=== PATIENT | male | born 1965 | race African-American/Black ===

== ENCOUNTER 2018-07-05 10:21 | Emergency (ER) | payer MEDICAID ==
[~2018-07-05] VITALS: Ht 182.9 cm; Wt 89.7 kg
[~2018-07-05 10:21] MED LIST: HYDR12.53 PO; RISP0.2518 PO; TRAZ150T62 PO
[2018-07-05 10:22] VITALS: BP_DIAS 111
[2018-07-05] MEDS ORDERED: LISINOPRIL 10 MG TABLET ONE (10:49)
[2018-07-05] MEDS ORDERED: LISINOPRIL 10 MG TABLET PO ONE (11:00)
[2018-07-05 11:33] VITALS: BP_SYST 157
== END 2018-07-05 11:36 | disposition home or self-care (01) ==
LOC: ED 11:25
DX: S80.01XA Contusion of right knee, initial encounter (principal); H00.024 Hordeolum internum left upper eyelid; H00.021 Hordeolum internum right upper eyelid; I10 Essential (primary) hypertension; F17.200 Nicotine dependence, unspecified, uncomplicated; X50.1XXA Overexertion from prolonged static or awkward postures, initial encounter; Y93.89 Activity, other specified; Y92.69 Other specified industrial and construction area as the place of occurrence of the external cause; Y99.0 Civilian activity done for income or pay
CPT/HCPCS: 99284

== ENCOUNTER 2018-10-13 07:14 | Emergency (ER) | payer MEDICAID ==
[~2018-10-13] VITALS: Ht 182.9 cm; Wt 85.2 kg
[2018-10-13 07:23] VITALS: BP 154/78
[2018-10-13] MEDS ORDERED: BUPR-173 PO (07:40)
[2018-10-13] MEDS ORDERED: LISI5TAB7 PO (07:40)
[2018-10-13 08:09] LABS: BASOPHILS # (AUTO) 0.03 x10^3/uL (0-0.1); BASOPHILS % (AUTO) 1 % (0-1); EOSINOPHILS # (AUTO) 0.06 x10^3/uL (0-0.4); EOSINOPHILS % (AUTO) 1 % (1-7); LYMPHOCYTES # (AUTO) 1.96 x10^3/uL (1-3.4); LYMPHOCYTES % (AUTO) 34 % (22-44); MD NO; MEAN CORPUSCULAR HEMOGLOBIN 27.5 pg (27.5-34.5); MEAN CORPUSCULAR HGB CONC 32.4 g/dL (33.2-36.2); MEAN CORPUSCULAR VOLUME 84.8 fL (81-97); MEAN PLATELET VOLUME 7.8 fL (7.4-10.4); MONOCYTES # (AUTO) 0.44 x10^3/uL (0.2-0.8); MONOCYTES % (AUTO) 8 % (2-9); NEUTROPHILS # (AUTO) 3.24 x10^3/uL (1.8-6.8); NEUTROPHILS % (AUTO) 57 % (42-75); PLATELET COUNT 245 x10^3/uL (130-400); RED BLOOD COUNT 4.35 x10^6/uL (4.38-5.82); RED CELL DISTRIBUTION WIDTH 14.5 % (9.4-14.8)
[2018-10-13 08:20] LABS: ALANINE AMINOTRANSFERASE 33 U/L (12-78); ALBUMIN 3.4 g/dL (3.4-5.0); ANION GAP 6 mmol/L (5-15); CALCIUM 8.2 mg/dL (8.5-10.1); CHLORIDE 111 mmol/L (98-107); CREATININE 1.09 mg/dL (0.7-1.3)
[2018-10-13 08:22] LABS: ALKALINE PHOSPHATASE 79 U/L (45-117); BILIRUBIN,TOTAL 0.3 mg/dL (0.2-1.0)
== END 2018-10-13 09:23 | disposition home or self-care (01) ==
LOC: ED 09:15
DX: I73.89 Other specified peripheral vascular diseases (principal); M79.672 Pain in left foot; M79.671 Pain in right foot; I10 Essential (primary) hypertension
CPT/HCPCS: 36415; 80053; 85025; 99283

== ENCOUNTER 2019-01-16 11:14 | Emergency (ER) | payer MEDICAID ==
[~2019-01-16] VITALS: Ht 182.9 cm; Wt 82.7 kg
[~2019-01-16 11:14] MED LIST changes: +BUPR-173 PO; +HYDR12.517 PO; -HYDR12.53 PO; +LISI5TAB7 PO
[2019-01-16] MEDS ORDERED: KETOROLAC 30 MG/1 ML IM ONE (11:30)
[2019-01-16] MEDS ORDERED: CYCLOBENZAPRINE 10 MG TABLET PO ONE (11:30)
[2019-01-16] MEDS ORDERED: KETOROLAC 30 MG/1 ML ONE (11:33)
[2019-01-16] MEDS ORDERED: CYCLOBENZAPRINE 10 MG TABLET ONE (11:33)
--- NOTE | 2019-01-16 11:41 | NUR ---
PT MEDICATED FOR 10/25 PAIN ORDERED
[2019-01-16 12:49] VITALS: BP 130/90
== END 2019-01-16 12:51 | disposition home or self-care (01) ==
LOC: ED 12:00
DX: S16.1XXA Strain of muscle, fascia and tendon at neck level, initial encounter (principal); I10 Essential (primary) hypertension; F17.200 Nicotine dependence, unspecified, uncomplicated; X58.XXXA Exposure to other specified factors, initial encounter; Y93.89 Activity, other specified; Y92.89 Other specified places as the place of occurrence of the external cause; Y99.8 Other external cause status
CPT/HCPCS: 96372; 99283; J1885

== ENCOUNTER 2019-01-28 | Emergency (ER) | payer MEDICAID ==
[~2019-01-28] VITALS: Ht 182.9 cm; Wt 87.0 kg
[2019-01-28 01:28] VITALS: BP 148/97
--- NOTE | 2019-01-28 01:28 | NUR ---
Patient/Caregiver given discharge instructions and they have confirmed that they understand the instructions. Patient ambulatory with steady gait.
== END 2019-01-28 01:30 | disposition home or self-care (01) ==
LOC: ED 01:15
DX: I10 Essential (primary) hypertension (principal); Z76.0 Encounter for issue of repeat prescription
CPT/HCPCS: 99283

== ENCOUNTER 2019-02-03 10:54 | Emergency (ER) | payer MEDICAID ==
[~2019-02-03] VITALS: Ht 208.3 cm; Wt 88.0 kg
--- NOTE | 2019-02-03 12:50 | NUR ---
PT JEANETTE HART WHERE HE WAS FOUND AT THE [employer] [facility] ON THE BATHROOM FLOOR. PT WITH METH PIPE NEXT TO HIM. PT STATED HE HAS BEEN DRINKING ALCOHOL ALL NIGHT. PT VERY DROWSY. PT PLACED IN ROOM AND PLACED ON BP AND CONT. PULSE OXIMETER. ASSESMENT COMPLETED. PT WITH RIGHT KNEE PAIN AND SWELLING FOR YEARS AND WITH MORE PAIN AND SWELLING AT THIS TIME. PT A&OX4.
[2019-02-03] MEDS ORDERED: HYDROcodone/APAP 5/325 TABLET PO ONE (13:30)
--- NOTE | 2019-02-03 13:39 | NUR ---
PT ASSISTED TO BR AND HAD A BM. PT CLEANED UP. PT IN BR TAKING A SHOWER IN THE SINK. PT THEN GIVEN JEANS TO GO HOME WITH.
--- NOTE | 2019-02-03 13:40 | NUR ---
PT OPENING BATHROOM DOOR TO OTHER PATIENTS ROOM WITHOUT CLOTHING ON. PT WITH GOWN ON BACKWARDS AND EXPOSING HIMSELF. PT TOLD TO GET DRESSED. PT ASKING FOR A SHOWER. I TOLD PT WE DO NOT ALLOW PT TO TAKE SHOWERS IF THEY ARE GOING HOME. PT ASKING FOR FOOD AND A NETWORK ARCHITECT MANAGER FOR HIS PHONE.
[2019-02-03] MEDS ORDERED: HYDROcodone/APAP 5/325 TABLET ONE (13:41)
--- NOTE | 2019-02-03 14:08 | NUR ---
PT GIVEN DISCHARGE INSTRUCTIONS AND FOLLOW UP INSTRUCTIONS. PT UP AMBULATORY AND STABLE ON FEET.
[2019-02-03 14:09] VITALS: BP 135/77
--- NOTE | 2019-02-03 14:30 | NUR ---
PT ESCORTED OUT WITH A WHEELCHAIR. ON THE WAY OUT PT ASKED ME " ARE YOU MEAN TO ALL AMERICANS. ?" I THEN STATED NO AND THEN LEFT PATIENT AT DISCHARGE DESK.
== END 2019-02-03 14:48 | disposition home or self-care (01) ==
LOC: ED 14:27
DX: G89.29 Other chronic pain (principal); M25.561 Pain in right knee; G89.11 Acute pain due to trauma; M79.672 Pain in left foot; I10 Essential (primary) hypertension
CPT/HCPCS: 93005; 99283

== ENCOUNTER 2019-04-01 12:15 | Inpatient (IN) | payer MEDICAID ==
[~2019-04-01] VITALS: Ht 182.9 cm; Wt 77.9 kg
[2019-04-01 13:15] LABS: MEAN CORPUSCULAR HEMOGLOBIN 28.2 pg (27.5-34.5); MEAN CORPUSCULAR HGB CONC 32.4 g/dL (33.2-36.2); MEAN CORPUSCULAR VOLUME 87.2 fL (81-97); MEAN PLATELET VOLUME 8.1 fL (7.4-10.4); PLATELET COUNT 217 x10^3/uL (130-400); RED BLOOD COUNT 4.04 x10^6/uL (4.38-5.82); RED CELL DISTRIBUTION WIDTH 15.8 % (9.4-14.8)
[2019-04-01 13:21] LABS: ALBUMIN 3.1 g/dL (3.4-5.0); ANION GAP 5 mmol/L (5-15); CALCIUM 7.8 mg/dL (8.5-10.1); CHLORIDE 115 mmol/L (98-107)
[2019-04-01 13:27] LABS: ALANINE AMINOTRANSFERASE 112 U/L (12-78); ALKALINE PHOSPHATASE 116 U/L (45-117); BILIRUBIN,TOTAL 0.6 mg/dL (0.2-1.0); CREATININE 1.55 mg/dL (0.7-1.3); TOTAL PROTEIN 5.7 g/dL (6.4-8.2); TROPONIN I 0.035 ng/mL (0.000-0.045)
[2019-04-01 13:29] LABS: BASOPHILS # (AUTO) 0.03 x10^3/uL (0-0.1); BASOPHILS % (AUTO) 1 % (0-1); EOSINOPHILS # (AUTO) 0.07 x10^3/uL (0-0.4); EOSINOPHILS % (AUTO) 1 % (1-7); LYMPHOCYTES # (AUTO) 1.63 x10^3/uL (1-3.4); LYMPHOCYTES % (AUTO) 27 % (22-44); MD SCAN; MONOCYTES # (AUTO) 0.39 x10^3/uL (0.2-0.8); MONOCYTES % (AUTO) 7 % (2-9); NEUTROPHILS # (AUTO) 3.82 x10^3/uL (1.8-6.8); NEUTROPHILS % (AUTO) 64 % (42-75)
--- NOTE | 2019-04-01 14:19 | NUR ---
IV STARTED AND URINE SENT TO THE LAB. WAITING FOR CTA OF THE CHEST. 3 P'S ADDRESSED,
[2019-04-01 14:30] LABS: MICROSCOPIC AUTO
[2019-04-01 14:31] LABS: CULTURE INDICATED? NO
[2019-04-01] MEDS ORDERED: OMNIPAQUE 350 MG/ML, 100ML BOTTLE ONE (14:33)
--- NOTE | 2019-04-01 15:01 | NUR ---
CHART UP FOR MD RECHECK. PT AWARE.
--- NOTE | 2019-04-01 16:21 | NUR ---
DR. FERNANDEZ WAS AT BEDSIDE. PT TO BE ADMITTED FOR INTERMEDIATE TROP, LEFT ARM PAIN.
[2019-04-01] MEDS ORDERED: DIVA500T2 PO (16:25)
[2019-04-01] MEDS ORDERED: TAMS-11 PO (16:25)
--- NOTE | 2019-04-01 16:50 | NUR ---
REPORT TO JANETTE MURO FOR LUNCH BREAK.
--- NOTE | 2019-04-01 17:30 | NUR ---
REPORT GIVEN BY JANETTE Layton RN.
[2019-04-01 18:45] LABS: INTERNATIONAL NORMALIZED RATIO 1.02 (0.93-1.1); PROTHROMBIN TIME 10.7 Seconds (9.6-11.5)
[2019-04-01 18:55] VITALS: BP 135/91
[2019-04-01] MEDS ORDERED: hydrALAzine 20 MG/ML, 1ML IVPush PRN (19:30)
[2019-04-01] MEDS ORDERED: LIDODERM 5% PATCH TD PRN (19:30)
[2019-04-01] MEDS ORDERED: DOCUSATE 100 MG CAPSULE PO PRN (19:30)
[2019-04-01] MEDS ORDERED: GABAPENTIN 300 MG CAPSULE PO PRN (19:30)
[2019-04-01 19:40] LABS: TROPONIN I 0.022 ng/mL (0.000-0.045)
[2019-04-01] MEDS: HEPARIN 5,000 UNITS/ML, 1ML SQ SCH (20:48)
[2019-04-01 21:03] VITALS: BP 135/91
[2019-04-02 01:01] VITALS: BP 126/86
[2019-04-02 01:32] LABS: TROPONIN I 0.033 ng/mL (0.000-0.045)
[2019-04-02] MEDS: HEPARIN 5,000 UNITS/ML, 1ML SQ SCH ×3 (05:02→20:44)
[2019-04-02 05:36] LABS: BASOPHILS # (AUTO) 0.02 x10^3/uL (0-0.1); BASOPHILS % (AUTO) 0 % (0-1); EOSINOPHILS # (AUTO) 0.13 x10^3/uL (0-0.4); EOSINOPHILS % (AUTO) 2 % (1-7); LYMPHOCYTES # (AUTO) 2.53 x10^3/uL (1-3.4); LYMPHOCYTES % (AUTO) 42 % (22-44); MD NO; MEAN CORPUSCULAR HEMOGLOBIN 28.2 pg (27.5-34.5); MEAN CORPUSCULAR HGB CONC 31.9 g/dL (33.2-36.2); MEAN CORPUSCULAR VOLUME 88.3 fL (81-97); MEAN PLATELET VOLUME 8.2 fL (7.4-10.4); MONOCYTES # (AUTO) 0.39 x10^3/uL (0.2-0.8); MONOCYTES % (AUTO) 7 % (2-9); NEUTROPHILS # (AUTO) 2.92 x10^3/uL (1.8-6.8); NEUTROPHILS % (AUTO) 49 % (42-75); PLATELET COUNT 214 x10^3/uL (130-400); RED BLOOD COUNT 4.15 x10^6/uL (4.38-5.82); RED CELL DISTRIBUTION WIDTH 16.7 % (9.4-14.8)
[2019-04-02 05:38] LABS: ALANINE AMINOTRANSFERASE 95 U/L (12-78); ALBUMIN 2.9 g/dL (3.4-5.0); ANION GAP 6 mmol/L (5-15); CHLORIDE 112 mmol/L (98-107); CREATININE 0.95 mg/dL (0.7-1.3)
[2019-04-02 05:40] LABS: ALKALINE PHOSPHATASE 109 U/L (45-117); BILIRUBIN,TOTAL 0.6 mg/dL (0.2-1.0); TOTAL PROTEIN 5.7 g/dL (6.4-8.2)
[2019-04-02 07:09] VITALS: BP 126/86
[2019-04-02] MEDS: TAMSULOSIN 0.4 MG CAP.ER.24H PO SCH (08:08)
[2019-04-02] MEDS: DIVALPROEX 500 MG TABLET.DR PO SCH (08:08)
[2019-04-02] MEDS: ACETAMINOPHEN 325 MG TABLET PO PRN ×2 (08:27→13:43)
[2019-04-02] MEDS ORDERED: TRAZODONE 150MG TABLET PO SCH (09:00)
[2019-04-02] MEDS ORDERED: REGADENOSON 0.4 MG/5 ML SYRINGE ONE (09:17)
[2019-04-02 09:43] LABS: LDL/HDL RATIO 1.7 (0.5-3.0)
[2019-04-02 10:16] LABS: HCT (SEDRATE) 36.7 % (39.2-51.8)
[2019-04-02] MEDS ORDERED: GUAIFENESIN 200 MG TABLET PO SCH (12:00)
[2019-04-02] MEDS ORDERED: GUAIFENESIN 200 MG TABLET ONE (12:03)
[2019-04-02 13:10] VITALS: BP 136/92
[2019-04-02 14:32] VITALS: BP_SYST 133; BP_SYST 145; BP_DIAS 107; BP_DIAS 87
[2019-04-02 14:33] VITALS: BP 143/114
[2019-04-02 15:54] LABS: AMPHETAMINE SCREEN, URINE Positive (Negative); BARBITURATE SCREEN, URINE Negative (Negative); BENZODIAZEPINE SCREEN, URINE Negative (Negative); CANNABINOID SCREEN, URINE Negative (Negative); COCAINE SCREEN, URINE Negative (Negative); METHADONE SCREEN, URINE Negative (Negative); OPIATE SCREEN, URINE Negative (Negative)
[2019-04-02 20:07] VITALS: BP 129/87
[2019-04-02] MEDS: GUAIFENESIN ER 600 MG TABLET PO SCH (20:43)
[2019-04-02] MEDS: LISINOPRIL 10 MG TABLET PO SCH (20:44)
[2019-04-02] MEDS: TRAZODONE 150MG TABLET PO SCH (20:44)
[2019-04-03 01:16] VITALS: BP 122/81
[2019-04-03] MEDS: HEPARIN 5,000 UNITS/ML, 1ML SQ SCH ×3 (05:29→20:49)
[2019-04-03] MEDS: DIVALPROEX 500 MG TABLET.DR PO SCH (08:08)
[2019-04-03] MEDS: CARVEDILOL 3.125 MG TABLET PO SCH ×2 (08:08→17:47)
[2019-04-03] MEDS: GUAIFENESIN ER 600 MG TABLET PO SCH ×2 (08:08→20:49)
[2019-04-03] MEDS: TAMSULOSIN 0.4 MG CAP.ER.24H PO SCH (08:08)
[2019-04-03] MEDS: LISINOPRIL 10 MG TABLET PO SCH (08:10)
[2019-04-03 08:16] VITALS: BP 128/91
[2019-04-03 14:25] VITALS: BP 135/92
[2019-04-03 17:45] VITALS: BP 136/94
[2019-04-03 19:34] VITALS: BP 122/80
[2019-04-03] MEDS: TRAZODONE 150MG TABLET PO SCH (20:49)
[2019-04-04 03:20] VITALS: BP 138/99
[2019-04-04] MEDS: CARVEDILOL 3.125 MG TABLET PO SCH (05:06)
[2019-04-04] MEDS: HEPARIN 5,000 UNITS/ML, 1ML SQ SCH ×3 (05:06→21:43)
[2019-04-04 07:20] VITALS: BP 122/85
[2019-04-04] MEDS: GUAIFENESIN ER 600 MG TABLET PO SCH ×2 (08:10→21:43)
[2019-04-04] MEDS: TAMSULOSIN 0.4 MG CAP.ER.24H PO SCH (08:11)
[2019-04-04] MEDS: LISINOPRIL 10 MG TABLET PO SCH (08:11)
[2019-04-04] MEDS: DIVALPROEX 500 MG TABLET.DR PO SCH (08:11)
[2019-04-04 10:23] VITALS: BP 133/92
[2019-04-04] MEDS: SPIRONOLACTONE 25 MG TABLET PO SCH (10:25)
[2019-04-04] MEDS ORDERED: CARVEDILOL 3.125 MG TABLET PO ONE (10:30)
[2019-04-04 10:57] LABS: ANION GAP 9 mmol/L (5-15); CALCIUM 8.3 mg/dL (8.5-10.1); CHLORIDE 112 mmol/L (98-107); CREATININE 1.16 mg/dL (0.7-1.3)
[2019-04-04 12:59] VITALS: BP 131/91
[2019-04-04 17:49] VITALS: BP 123/89
[2019-04-04] MEDS: CARVEDILOL 6.25 MG TABLET PO SCH (17:50)
[2019-04-04 19:20] VITALS: BP 129/79
[2019-04-04] MEDS: TRAZODONE 150MG TABLET PO SCH (21:43)
[2019-04-05 02:06] VITALS: BP 116/82
[2019-04-05] MEDS: HEPARIN 5,000 UNITS/ML, 1ML SQ SCH ×2 (05:50→13:00)
[2019-04-05] MEDS: CARVEDILOL 6.25 MG TABLET PO SCH (05:50)
[2019-04-05 05:52] VITALS: BP 126/89
[2019-04-05 07:47] VITALS: BP 127/80
[2019-04-05] MEDS ORDERED: CARV6.2512 PO (08:12)
[2019-04-05] MEDS ORDERED: LISI5TAB7 PO ×2 (08:12)
[2019-04-05] MEDS ORDERED: GUAI600T31 PO (08:12)
[2019-04-05] MEDS ORDERED: SPIR25TA PO (08:12)
[2019-04-05] MEDS: DIVALPROEX 500 MG TABLET.DR PO SCH (09:07)
[2019-04-05] MEDS: SPIRONOLACTONE 25 MG TABLET PO SCH (09:08)
[2019-04-05] MEDS: GUAIFENESIN ER 600 MG TABLET PO SCH (09:08)
[2019-04-05] MEDS: LISINOPRIL 10 MG TABLET PO SCH (09:09)
[2019-04-05] MEDS: TAMSULOSIN 0.4 MG CAP.ER.24H PO SCH (09:10)
[2019-04-05] MEDS ORDERED: LOSA25TA12 PO (13:05)
[2019-04-05 16:42] LABS: ANA SCREEN NEGATIVE (Negative)
== END 2019-04-05 14:15 | disposition home or self-care (01) | DRG 917 ==
LOC: ED 13:20 → EDIP 16:35 → 5SO 18:49
PROVIDERS: ADMIT Internal Medicine; ATTEND Internal Medicine
DX: T43.621A Poisoning by amphetamines, accidental (unintentional), initial encounter (principal); N17.0 Acute kidney failure with tubular necrosis; I42.7 Cardiomyopathy due to drug and external agent; I50.22 Chronic systolic (congestive) heart failure; Y92.89 Other specified places as the place of occurrence of the external cause; I08.1 Rheumatic disorders of both mitral and tricuspid valves; F15.10 Other stimulant abuse, uncomplicated; I11.0 Hypertensive heart disease with heart failure; R74.0 Nonspecific elevation of levels of transaminase and lactic acid dehydrogenase [LDH]; F12.90 Cannabis use, unspecified, uncomplicated; I45.81 Long QT syndrome; N40.0 Benign prostatic hyperplasia without lower urinary tract symptoms; F17.210 Nicotine dependence, cigarettes, uncomplicated; F31.9 Bipolar disorder, unspecified; G89.29 Other chronic pain; M54.9 Dorsalgia, unspecified; D64.9 Anemia, unspecified; Z79.899 Other long term (current) drug therapy; Z82.49 Family history of ischemic heart disease and other diseases of the circulatory system; Z83.3 Family history of diabetes mellitus
CPT/HCPCS: 36415; 71046; 71275; 76700; 78452; 80048; 80053; 80061; 80074; 80307; 81001; 82570; 83605; 83615; 83735; 83880; 84145; 84300; 84484; 85025; 85379; 85610; 85651; 85730; 86038; 86140; 86480; 86592; 87806; 93005; 93017; 93306; 96372; 99285; G0378; J1644; J2785; Q9967; A9502; C9898; G0475

== ENCOUNTER 2019-05-14 10:24 | Emergency (ER) | payer MEDICAID ==
[~2019-05-14] VITALS: Ht 180.3 cm; Wt 77.0 kg
[~2019-05-14 10:24] MED LIST changes: +CARV6.2512 PO; +DIVA500T2 PO; +GUAI600T31 PO; +LOSA25TA12 PO; +SPIR25TA PO; +TAMS-11 PO
--- NOTE | 2019-05-14 11:11 | NUR ---
DR. MARTINEZ AT [facility]. PT C/O CP FOR 2 DAYS WITH RECENT ADMIT FOR COUGH AND SOB. DURING THAT VISIT HE HAD PLEURAL EFFUSIONS AND MEDISTINAL MASS WAS FOUND THAT SHOULD HAVE FLOOW-UP CT. PT REPORTS SOB ON EXERTION, NIGHT SWEATS THAT HAS CONTINUED SINCE LAST ADMISSION. PT STILL SMIKES BUT IS CUTTING BACK. PT ON MONITOR.
[2019-05-14 11:13] LABS: BASOPHILS # (AUTO) 0.02 x10^3/uL (0-0.1); BASOPHILS % (AUTO) 0 % (0-1); EOSINOPHILS # (AUTO) 0.12 x10^3/uL (0-0.4); EOSINOPHILS % (AUTO) 2 % (1-7); LYMPHOCYTES # (AUTO) 2.12 x10^3/uL (1-3.4); LYMPHOCYTES % (AUTO) 38 % (22-44); MD NO; MEAN CORPUSCULAR HEMOGLOBIN 28.1 pg (27.5-34.5); MEAN CORPUSCULAR HGB CONC 32.1 g/dL (33.2-36.2); MEAN CORPUSCULAR VOLUME 87.5 fL (81-97); MEAN PLATELET VOLUME 7.8 fL (7.4-10.4); MONOCYTES # (AUTO) 0.37 x10^3/uL (0.2-0.8); MONOCYTES % (AUTO) 7 % (2-9); NEUTROPHILS # (AUTO) 2.91 x10^3/uL (1.8-6.8); NEUTROPHILS % (AUTO) 53 % (42-75); PLATELET COUNT 263 x10^3/uL (130-400); RED BLOOD COUNT 4.62 x10^6/uL (4.38-5.82); RED CELL DISTRIBUTION WIDTH 14.4 % (9.4-14.8)
[2019-05-14 11:20] LABS: INTERNATIONAL NORMALIZED RATIO 1.01 (0.93-1.1); PROTHROMBIN TIME 10.6 Seconds (9.6-11.5)
[2019-05-14 11:24] LABS: ALBUMIN 3.6 g/dL (3.4-5.0); CALCIUM 8.7 mg/dL (8.5-10.1)
[2019-05-14 11:29] LABS: ALANINE AMINOTRANSFERASE 29 U/L (12-78); ALKALINE PHOSPHATASE 99 U/L (45-117); BILIRUBIN,TOTAL 0.3 mg/dL (0.2-1.0); CREATININE 1.05 mg/dL (0.7-1.3); TOTAL PROTEIN 7.1 g/dL (6.4-8.2); TROPONIN I < 0.015 ng/mL (0.000-0.045)
[2019-05-14 11:45] LABS: ANION GAP 3 mmol/L (5-15); CHLORIDE 111 mmol/L (98-107)
[2019-05-14 11:54] LABS: AMPHETAMINE SCREEN, URINE Negative (Negative); BARBITURATE SCREEN, URINE Negative (Negative); BENZODIAZEPINE SCREEN, URINE Negative (Negative); CANNABINOID SCREEN, URINE Negative (Negative); COCAINE SCREEN, URINE Negative (Negative); METHADONE SCREEN, URINE Negative (Negative); OPIATE SCREEN, URINE Negative (Negative)
--- NOTE | 2019-05-14 12:14 | NUR ---
CHART UP FOR MD RECHECK. PT AWARE.
[2019-05-14 12:30] VITALS: BP 127/82
== END 2019-05-14 12:32 | disposition home or self-care (01) ==
LOC: ED 12:10
DX: R07.2 Precordial pain (principal); I11.0 Hypertensive heart disease with heart failure; I50.9 Heart failure, unspecified; F17.200 Nicotine dependence, unspecified, uncomplicated
CPT/HCPCS: 36415; 71045; 80053; 80307; 83735; 83880; 84443; 84484; 85025; 85610; 93005; 99284

== ENCOUNTER 2020-05-11 12:42 | Emergency (ER) | payer MEDICAID ==
[~2020-05-11] VITALS: Ht 175.3 cm; Wt 73.0 kg
[2020-05-11 12:46] VITALS: BP 121/85
[2020-05-11 14:08] LABS: ANION GAP 6 mmol/L (5-15); CALCIUM 8.9 mg/dL (8.5-10.1); CHLORIDE 109 mmol/L (98-107); CREATININE 1.13 mg/dL (0.7-1.3)
--- NOTE | 2020-05-11 14:25 | NUR ---
ALL RESULTS ARE BACK AT THIS TIME. CHART UP FOR RECHECK.
== END 2020-05-11 15:00 | disposition home or self-care (01) ==
LOC: ED 14:55
DX: M25.561 Pain in right knee (principal); I11.0 Hypertensive heart disease with heart failure; I50.9 Heart failure, unspecified; F17.200 Nicotine dependence, unspecified, uncomplicated
CPT/HCPCS: 36415; 80048; 99284

== ENCOUNTER 2020-05-30 01:32 | Emergency (ER) | payer MEDICAID ==
[~2020-05-30] VITALS: Ht 172.7 cm; Wt 76.1 kg
[2020-05-30 01:37] VITALS: BP 151/96
--- NOTE | 2020-05-30 01:54 | NUR ---
Pt states out of flomax and "its been hard to pee since". States able to urinate but "it just spits out." Denies pain upon urination or blood in urine. -flank pain.
[2020-05-30] MEDS ORDERED: TAMSULOSIN 0.4 MG CAP.ER.24H ONE (01:56)
[2020-05-30] MEDS ORDERED: IBUPROFEN 600 MG TABLET ONE (01:57)
[2020-05-30] MEDS ORDERED: IBUPROFEN 600 MG TABLET PO ONE (02:00)
[2020-05-30] MEDS ORDERED: TAMSULOSIN 0.4 MG CAP.ER.24H PO ONE (02:00)
== END 2020-05-30 02:08 | disposition home or self-care (01) ==
LOC: ED 02:00
DX: N40.1 Benign prostatic hyperplasia with lower urinary tract symptoms (principal); R33.8 Other retention of urine; G89.29 Other chronic pain; M25.561 Pain in right knee; F17.200 Nicotine dependence, unspecified, uncomplicated; I11.0 Hypertensive heart disease with heart failure; I50.9 Heart failure, unspecified
CPT/HCPCS: 99283

== ENCOUNTER 2020-06-01 06:16 | Emergency (ER) | payer MEDICAID ==
[~2020-06-01] VITALS: Ht 172.7 cm; Wt 82.0 kg
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
--- NOTE | 2020-06-01 06:23 | NUR ---
PA AT BEDSIDE FOR ASSESSMENT
--- NOTE | 2020-06-01 06:55 | NUR ---
REPORT FROM TEJAS MURO
[2020-06-01] MEDS ORDERED: DEXAMETHASONE 4 MG/ML, 1ML ONE (06:58)
[2020-06-01] MEDS ORDERED: DEXAMETHASONE 4 MG/ML, 1ML IM ONE (07:00)
[2020-06-01] MEDS ORDERED: BICILLIN-LA 1,200,000 UNITS/2 ML IM ONE (07:00)
[2020-06-01 07:33] LABS: BASOPHILS # (AUTO) 0.04 x10^3/uL (0-0.1); BASOPHILS % (AUTO) 0 % (0-1); EOSINOPHILS # (AUTO) 0.05 x10^3/uL (0-0.4); EOSINOPHILS % (AUTO) 1 % (1-7); LYMPHOCYTES # (AUTO) 1.69 x10^3/uL (1-3.4); LYMPHOCYTES % (AUTO) 19 % (22-44); MD NO; MEAN CORPUSCULAR HGB CONC 32.2 g/dL (33.2-36.2); MEAN CORPUSCULAR VOLUME 87.1 fL (81-97); MEAN PLATELET VOLUME 7.8 fL (7.4-10.4); MONOCYTES # (AUTO) 0.85 x10^3/uL (0.2-0.8); MONOCYTES % (AUTO) 9 % (2-9); NEUTROPHILS # (AUTO) 6.38 x10^3/uL (1.8-6.8); NEUTROPHILS % (AUTO) 71 % (42-75); PLATELET COUNT 243 x10^3/uL (130-400); RED BLOOD COUNT 4.43 x10^6/uL (4.38-5.82); RED CELL DISTRIBUTION WIDTH 14.3 % (9.4-14.8)
[2020-06-01 08:04] LABS: ALBUMIN 3.4 g/dL (3.4-5.0); CHLORIDE 111 mmol/L (98-107)
--- NOTE | 2020-06-01 08:10 | NUR ---
PIV placed, waiting for imaging. Call light in reack.
[2020-06-01 08:11] LABS: ALANINE AMINOTRANSFERASE 16 U/L (12-78); ALKALINE PHOSPHATASE 108 U/L (45-117); ANION GAP 6 mmol/L (5-15); BILIRUBIN,TOTAL 0.4 mg/dL (0.2-1.0); CALCIUM 8.3 mg/dL (8.5-10.1); CREATININE 1.17 mg/dL (0.7-1.3); TOTAL PROTEIN 7.5 g/dL (6.4-8.2)
--- NOTE | 2020-06-01 08:32 | NUR ---
pt to imaging
[2020-06-01] MEDS ORDERED: OMNIPAQUE 350 MG/ML, 100ML BOTTLE ONE (08:47)
[2020-06-01] MEDS ORDERED: BENZOCAINE 20% SPRAY 0.5ML TP ONE (09:30)
[2020-06-01] MEDS ORDERED: LIDOCAINE 1%-EPI 1:100K, 20ML SQ ONE (09:30)
--- NOTE | 2020-06-01 09:48 | NUR ---
pt resting in bed, call light in reach.
[2020-06-01] MEDS ORDERED: BENZOCAINE AEROSOL SPRAY 20%, 60ML ONE (10:10)
[2020-06-01] MEDS ORDERED: LIDOCAINE 1%-EPI 1:100K, 20ML ONE (10:10)
--- NOTE | 2020-06-01 10:16 | NUR ---
HEDY VALLE & HEDY ROBERTSON AT BEDSIDE FOR PROCEDURE.
--- NOTE | 2020-06-01 10:42 | NUR ---
Discharge instructions reviewed
[2020-06-01 10:50] VITALS: BP 150/83
== END 2020-06-01 10:52 | disposition home or self-care (01) ==
LOC: ED 07:43
DX: J36 Peritonsillar abscess (principal); R13.10 Dysphagia, unspecified; R42 Dizziness and giddiness; I11.0 Hypertensive heart disease with heart failure; I50.9 Heart failure, unspecified
CPT/HCPCS: 36415; 42700; 70491; 80053; 85025; 96372; 99285; J0561; J1100; J3490; Q9967

== ENCOUNTER 2020-10-05 20:52 | Emergency (ER) | payer MEDICAID ==
[~2020-10-05] VITALS: Ht 175.3 cm; Wt 88.0 kg
[2020-10-05 21:08] VITALS: BP 161/74
[2020-10-05 22:01] LABS: BASOPHILS % (AUTO) 1 % (0-1); EOSINOPHILS % (AUTO) 1 % (1-7); LYMPHOCYTES % (AUTO) 40 % (22-44); MEAN CORPUSCULAR HEMOGLOBIN 28.4 pg (27.5-34.5); MEAN CORPUSCULAR HGB CONC 32.7 g/dL (33.2-36.2); MEAN PLATELET VOLUME 7.6 fL (7.4-10.4); MONOCYTES % (AUTO) 12 % (2-9); NEUTROPHILS % (AUTO) 47 % (42-75); PLATELET COUNT 232 x10^3/uL (130-400); RED BLOOD COUNT 4.61 x10^6/uL (4.38-5.82); RED CELL DISTRIBUTION WIDTH 14.2 % (9.4-14.8)
[2020-10-05 22:10] LABS: MD NO
[2020-10-05 22:11] LABS: ALANINE AMINOTRANSFERASE 16 U/L (12-78); ALBUMIN 3.8 g/dL (3.4-5.0); ANION GAP 6 mmol/L (5-15); CALCIUM 8.5 mg/dL (8.5-10.1); CHLORIDE 110 mmol/L (98-107); CREATININE 1.19 mg/dL (0.7-1.3)
[2020-10-05 22:13] LABS: ALKALINE PHOSPHATASE 100 U/L (45-117); BILIRUBIN,TOTAL 0.2 mg/dL (0.2-1.0); TOTAL PROTEIN 7.8 g/dL (6.4-8.2)
[2020-10-05] MEDS ORDERED: ACETAMINOPHEN 500 MG TABLET PO ONE (23:00)
[2020-10-05] MEDS ORDERED: DOXYCYCLINE 100MG TABLET PO ONE (23:00)
[2020-10-05] MEDS ORDERED: ACETAMINOPHEN 500 MG TABLET ONE (23:08)
[2020-10-05] MEDS ORDERED: DOXYCYCLINE 100MG TABLET ONE (23:08)
--- NOTE | 2020-10-05 23:12 | NUR ---
PT MEDICATED PER MAR Patient/Caregiver given discharge instructions and they have confirmed that they understand the instructions. Patient ambulatory with steady gait.
== END 2020-10-05 23:46 | disposition home or self-care (01) ==
LOC: ED 23:40
DX: L03.312 Cellulitis of back [any part except buttock and flank] (principal); Z20.828 Contact with and (suspected) exposure to other viral communicable diseases; R11.2 Nausea with vomiting, unspecified; M79.10 Myalgia, unspecified site; R51.9 Headache, unspecified; R19.7 Diarrhea, unspecified; M54.6 Pain in thoracic spine; I11.0 Hypertensive heart disease with heart failure; I50.9 Heart failure, unspecified
CPT/HCPCS: 71045; 80053; 85025; 87635; 99284

== ENCOUNTER 2021-01-13 19:19 | Emergency (ER) | payer MEDICAID ==
[~2021-01-13] VITALS: Ht 175.3 cm; Wt 84.4 kg
[2021-01-13 20:34] VITALS: BP 176/114
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
--- NOTE | 2021-01-13 20:48 | NUR ---
discharge instructions reviewed with patient. no further questions at this time. prescription handed directly to patient. behavioral facilities/counsiling resources in community handed directly to patient and reviewed if any worsening of depression/sadness, SI thoughts worsen and become intentional. patient verbalized acknowledgment of this. steady gait in room. all personal belongings with patient on dc. no IV placed during this ER visit.
== END 2021-01-13 21:16 | disposition home or self-care (01) ==
LOC: ED 20:52
DX: G62.9 Polyneuropathy, unspecified (principal); I11.0 Hypertensive heart disease with heart failure; I50.9 Heart failure, unspecified; E11.9 Type 2 diabetes mellitus without complications
CPT/HCPCS: 99283

== ENCOUNTER 2021-05-22 19:44 | Emergency (ER) | payer MEDICAID ==
[~2021-05-22] VITALS: Ht 175.3 cm; Wt 84.0 kg
[2021-05-22 19:49] VITALS: BP 146/106
--- NOTE | 2021-05-22 21:20 | NUR ---
PT AMBULATES FROM LOBBY TO ROOM WITH STEADY GAIT.
--- NOTE | 2021-05-22 21:41 | NUR ---
PT D/C WITH D/C SUMMARY AND SCRIPTS. ALL QUESTIONS ANSWERED. PT AMBULATES TO REGISTRATION DESK WITH STEADY GAIT WITH USE OF CANE FOR D/C HOME. PT DENIES ANY OTHER NEEDS PERTAINING TO THIS VISIT.
== END 2021-05-22 21:43 ==
LOC: ED 21:41
DX: M54.6 Pain in thoracic spine (principal); I11.0 Hypertensive heart disease with heart failure; I50.9 Heart failure, unspecified; E11.9 Type 2 diabetes mellitus without complications; F17.200 Nicotine dependence, unspecified, uncomplicated; Z96.651 Presence of right artificial knee joint
CPT/HCPCS: 99283

== ENCOUNTER 2021-06-27 15:03 | Emergency (ER) | payer MEDICAID ==
[~2021-06-27] VITALS: Ht 182.9 cm; Wt 80.0 kg
[2021-06-27 15:40] VITALS: BP 160/100
--- NOTE | 2021-06-27 15:42 | NUR ---
PT LEFT WITHOUT BEING SEEN BY
== END 2021-06-27 15:44 | disposition left against medical advice (07) ==
LOC: ED 15:30
DX: R51.9 Headache, unspecified (principal); M25.529 Pain in unspecified elbow; Z53.21 Procedure and treatment not carried out due to patient leaving prior to being seen by health care provider

== ENCOUNTER 2021-07-19 05:46 | Emergency (ER) | payer MEDICAID ==
[~2021-07-19] VITALS: Ht 175.3 cm; Wt 86.6 kg
[2021-07-19] MEDS ORDERED: HYDROcodone/APAP 5/325 TABLET PO PRN (06:00)
[2021-07-19] MEDS ORDERED: KETOROLAC 30 MG/1 ML IM ONE (06:00)
[2021-07-19] MEDS ORDERED: KETOROLAC 30 MG/1 ML ONE (06:04)
[2021-07-19] MEDS ORDERED: HYDROcodone/APAP 5/325 TABLET ONE (06:04)
--- NOTE | 2021-07-19 07:12 | NUR ---
PATIENT IS LAYING IN GURNEY WATCHING TV, NADN, CONNECTED TO MONITOR, VSS, CALL LIGHT WITHIN REACH.
--- NOTE | 2021-07-19 07:16 | NUR ---
PATIENT TO IMAGING.
--- NOTE | 2021-07-19 08:03 | NUR ---
ALL RESULTS BACK, PT FOR RECHECK.
--- NOTE | 2021-07-19 08:53 | NUR ---
PATIENT TO MRI.
[2021-07-19] MEDS ORDERED: GADOTERATE 10 MMOL/20ML SYR ONE (09:10)
--- NOTE | 2021-07-19 09:10 | NUR ---
PATIENT STILL IN MRI.
--- NOTE | 2021-07-19 09:38 | NUR ---
PATIENT BACK IN ROOM, NADN, CONNECTED TO MONITOR, VSS, CALL LIGHT WITHIN REACH. WAITING FOR MRI RESULTS.
--- NOTE | 2021-07-19 10:15 | NUR ---
HVAC TECHNICIAN RESIDENTIAL AT BEDSIDE.
[2021-07-19 10:41] LABS: BASOPHILS % (AUTO) 0 % (0-1); EOSINOPHILS % (AUTO) 2 % (1-7); LYMPHOCYTES % (AUTO) 46 % (22-44); MEAN CORPUSCULAR HEMOGLOBIN 27.6 pg (27.5-34.5); MEAN CORPUSCULAR HGB CONC 32.5 g/dL (33.2-36.2); MEAN PLATELET VOLUME 7.6 fL (7.4-10.4); MONOCYTES % (AUTO) 7 % (2-9); NEUTROPHILS % (AUTO) 45 % (42-75); PLATELET COUNT 263 x10^3/uL (130-400); RED BLOOD COUNT 5.02 x10^6/uL (4.38-5.82); RED CELL DISTRIBUTION WIDTH 14.6 % (9.4-14.8)
[2021-07-19 10:46] LABS: ANION GAP 6 mmol/L (5-15); C-REACTIVE PROTEIN, QUANT 0.66 mg/dL (0.02-0.49); CALCIUM 8.9 mg/dL (8.5-10.1); CHLORIDE 107 mmol/L (98-107); CREATININE 0.94 mg/dL (0.7-1.3)
[2021-07-19 10:53] LABS: HCT (SEDRATE) 42.7 % (39.2-51.8)
--- NOTE | 2021-07-19 11:08 | NUR ---
PATIENT PACING BACK AND FORTH IN ROOM, TOOK GOWN AND ALL MONITORING EQUIPMENT OFF AND GOT DRESSED. LABS RESULTED, PATIENT UP FOR RECHECK.
[2021-07-19 11:48] VITALS: BP 131/98
--- NOTE | 2021-07-19 12:14 | NUR ---
PATIENT FOUND WALKING IN AMBULANCE BAY, WALKED BACK TO ROOM, ERMD NOTIFIED AND DISCUSSED DISCHARGE DISPO WITH PATIENT. IV REMOVED WITH TIP INTACT. Patient given discharge instructions and prescription given and they have confirmed that they understand the instructions. Patient ambulatory with steady gait. NAD, all questions answered appropriately, denies additional needs at this time. No personal belongings left in room after discharge.
== END 2021-07-19 11:49 | disposition home or self-care (01) ==
LOC: ED 06:00
DX: M47.816 Spondylosis without myelopathy or radiculopathy, lumbar region (principal); G62.9 Polyneuropathy, unspecified; I11.0 Hypertensive heart disease with heart failure; I50.9 Heart failure, unspecified; G89.29 Other chronic pain; E11.9 Type 2 diabetes mellitus without complications
CPT/HCPCS: 36415; 72110; 72158; 73564; 80048; 83605; 84145; 85025; 85651; 86140; 87040; 96372; 99285; A9575; J1885

== ENCOUNTER 2021-07-25 10:55 | Emergency (ER) | payer MEDICAID ==
[~2021-07-25] VITALS: Ht 175.3 cm; Wt 82.5 kg
--- NOTE | 2021-07-25 16:17 | NUR ---
COMMERCIAL TIRE SERVICE TECHNICIAN: CALLED FOR ROOM, NO ANSWER
--- NOTE | 2021-07-25 16:39 | NUR ---
Viktor solis in [facility] - 07/25/21 at 1640 by JENIFER SALES ADVISORY MANAGER: CALLED FOR ROOM, NO ANSWER
--- NOTE | 2021-07-25 16:40 | NUR ---
JOB MOLDER: PT TO ROOM FROM LOBBY
[2021-07-25 16:54] VITALS: BP 142/89
[2021-07-25] MEDS ORDERED: KETOROLAC 60 MG/2 ML ONE (17:56)
[2021-07-25] MEDS ORDERED: KETOROLAC 30 MG/1 ML IM ONE (18:00)
--- NOTE | 2021-07-25 18:20 | NUR ---
Patient given discharge instructions and they have confirmed that they understand the instructions. Patient ambulatory with steady gait. NAD, all questions answered appropriately, denies additional needs at this time. No personal belongings left in room after discharge.
== END 2021-07-25 18:40 | disposition home or self-care (01) ==
LOC: ED 12:55
DX: M25.461 Effusion, right knee (principal); G62.9 Polyneuropathy, unspecified; G89.29 Other chronic pain; L91.0 Hypertrophic scar; Z96.651 Presence of right artificial knee joint; I11.0 Hypertensive heart disease with heart failure; I50.9 Heart failure, unspecified; E11.9 Type 2 diabetes mellitus without complications; F17.200 Nicotine dependence, unspecified, uncomplicated
CPT/HCPCS: 96372; 99283; J1885